=== PATIENT | male | born 1945 | race Caucasian/White ===

== ENCOUNTER → 2017-03-29 | Outpatient (CLI) | payer BC ==
[2016-03-16 14:29] VITALS: BP 112/62; PULSE 79
[~2017-03-29] MED LIST: AMLO-110 PO; ASPI81TA28 PO; ATOR-26 PO; CALC-393; CHOL1000 PO; FERR1TAB13 PO; HYDR25TA4 PO; LANS30CA63 PO; LEVO50TA PO; LISI20TA3 PO; LISI40TA PO; METO-217 PO; MISC1CAP60 PO; MULT-506 PO; POTA10CA28 PO; TAMS0.4C59 PO
[2017-03-29 13:27] VITALS: BP 140/80; PULSE 76; TEMP 37.2; O2SAT 95
--- NOTE | 2017-03-29 15:35 | Radiation Oncology Follow-Up ---
Radiation Oncology Follow-Up Date of Visit Mar 29, 2017. Reason For Visit Annual follow-up Radiation Completion Date Cesium 131 seed implant 03/31/14;Ext. RT on 07/20/14 Diagnosis (1) Prostate cancer Status: Resolved Onset Date: 08/2013 Stage: ll Permanent Comment: Abnormal digital rectal examination with PSA of 3.18 Status post ultrasound-guided biopsy. Biopsy stage T2b Osbaldo grade 3+3 and 3+ 4 Hormonal suppression Status post prostate seed implant 03/31/2014 with cesium 131 received 85Gy Status post completion of IMRT/IGRT 07/20/2014 received 45 Gy Last Edited By: Tonia Joaquin on Mar 16, 2016 16:49 Interim History He is been doing well over this past year. He does continue to require Flomax to help with urination. He gave an AUA score of 12. Last year he gave a score of 6. He completed expanded prostate cancer index composite for clinical practice and gave a score of 3 of 12 in urinary incontinence symptoms. He gave a score of 5 of 12 and urinary irritation symptoms. He gave a score of 0 12 and bowel symptoms. He gave a score of 6 of 12 and sexual symptoms. He gave a score of 4 of 12 and hormonal vitality symptoms. His total was 18 of 60. He had a PSA at [facility] in [place] on 10/28/2015 and that was 0.22. He continues regular follow-up with Dr. Cee. Allergies Coded Allergies: POLLEN (Unverified Allergy, Intermediate, nasa congestion puffiness around eyes, 03/16/16) Home Medications Scheduled Amlodipine (Norvasc), 5 MG PO DAILY Aspirin (Aspirin Ec), 81 MG PO DAILY Atorvastatin (Lipitor), 80 MG PO DAILY Cholecalciferol (Vitamin D3), 2,000 UNITS PO DAILY Ferrous Sulfate (Kp Ferrous Sulfate), 1 TAB PO DAILY Hydrochlorothiazide (Hctz), 25 MG PO DAILY Lansoprazole (Prevacid), 30 MG PO DAILY Levothyroxine Sodium (Synthroid), 50 MCG PO DAILY Lisinopril (Prinivil), 20 MG PO DAILY Metoprolol Succinate (Toprol Xl), 50 MG PO BID Multivitamin (Multivitamin), 1 TAB PO DAILY Potassium Chloride (Micro-K Ext Rel), 10 MEQ PO DAILY Tamsulosin Hcl (Flomax), 0.4 MG PO DAILY Review of Systems Gastrointestinal: Symptoms: Nausea GI Comments: Transient nausea in AM on occassion;No fiber supplements; Oral: Symptoms: No Problems Respiratory: Symptoms: WNL Urinary: Symptoms: Nocturia Comments: Intermittent problems with urgency, 2-4 voids/night, taking flomax Skin: Symptoms: No Problems Physical Exam Vital Signs Date Time Temp Pulse Resp B/P (MAP) Pulse Ox O2 Delivery O2 Flow Rate FiO2 03/29/17 13:27 37.2 76 20 140/80 95 Pain: Pain Onset: 4-5 years Pain Duration: intermet Pain Location: None Patient Pain Scale: 0 - 10 Initial Pain Intensity: 4.0 Pain Description: Aching Additional Comments: stiffness Fatigue: None General Appearance: no apparent distress Eyes: normal inspection, EOMI ENT: normal ENT inspection, hearing grossly normal Respiratory/Chest: lungs clear, no respiratory distress, no accessory muscle use Cardiovascular: regular rate, rhythm, no gallop, no murmur Abdomen: non tender, soft, no organomegaly Extremities: no pedal edema Neurologic/Psychiatric: no motor/sensory deficits, alert, normal mood/affect Skin: warm/dry Laboratory Studies Test 03/29/17 14:23 Prostate Specific Antigen 0.111 ng/ml (0.000-4.000) Assessment & Plan Plan: A PSA was drawn today. He'll be notified as to results. He has follow- up appointment with Dr. Cee 04/11/2017. He reviewed his urinary symptoms with Dr. Egan. He has been getting up 2-4 times per night. He has urinary urgency. Decision was to increase the Flomax to twice a day. A new prescription was written. He can review with Dr. Cee if this is helping his symptoms. We asked him to return to our office in 1 year. He may call if he has the questions or concerns in the interim. Total Time In Follow-Up We spent 25 minutes speaking to the patient and performing examination. I spent 15 minutes reviewing information and completeness note. AK Copy To Ashleigh Ch M.D.; Hai Cee MD
== END | disposition home or self-care (01) ==
LOC: C.ONC 13:21
PROVIDERS: ATTEND Physician Assistant Medical
DX: Z08 Encounter for follow-up examination after completed treatment for malignant neoplasm (principal); Z92.3 Personal history of irradiation; Z85.46 Personal history of malignant neoplasm of prostate